=== PATIENT | female | born 1985 | race Hispanic/Latino ===

== ENCOUNTER 2024-08-02 11:34 | Emergency (ER) | payer OTHER, SELFPAY ==
[2024-08-02 11:44] VITALS: BP 111/70
--- NOTE | 2024-08-02 12:27 | EDRN ---
Pt administered a vomit bag at this time. Dr. Hector in room w/ pt.
--- NOTE | 2024-08-02 12:42 | ED.GENMED ---
History of Present Illness
General
Chief Complaint: Prescription Refill
Time Seen by Provider: 08/02/24 12:13
History of Present Illness
History of Present Illness:
39-year-old female history of anxiety, bipolar disorder, schizophrenia, substance abuse presenting for prescription refill. Patient states that she had inpatient psychiatric admission for 2 months and then was discharged, was in penitentiary for 2 weeks
and was released on 07/30. Patient states that she has been out of her medications and never received a prescription for refill after being discharge from hospital. Pt states she received medications while in penitentiary. Patient denies any
suicidal or homicidal ideations. Patient states that she is having auditory hallucinations which is normal for her. Patient contributes worsening hallucinations to not being on medications for the past few days. Patient states that she is
currently at [facility] and is attempting to switch care to [facility]. Patient denies chest pain, shortness of breath, abdominal pain. Patient states she is on gabapentin 800mg 3 times daily, Seroquel 400mg in the morning/800 mg at night, BuSpar
30 mg 3 times daily.
Phy Exam
Physical Exam
Physical Exam:
General: Alert, no acute distress
Head: NCAT
Eyes: clear conjunctiva, PERRLA
Neck: supple
Cardiac: regular rate and rhythm, no murmur
Lungs: clear to auscultation bilaterally. No wheezes, rales, or rhonchi. Speaking full unlabored sentences. No respiratory distress.
Abdomen: soft, nondistended nontender. No rebound or guarding.
MSK: no lower extremity edema bilaterally. No deformity
Skin: warm, dry
Neuro: Alert and oriented x3. no focal deficits
Course
Vital Signs
Initial and Last Documented VS:
Initial Vital Signs
Temp Pulse Resp BP Pulse Ox
97.8 F 99 16 111/70 99
08/02/24 11:44 08/02/24 11:44 08/02/24 11:44 08/02/24 11:44 08/02/24 11:44
Last Documented Vital Signs
Temp Pulse Resp BP Pulse Ox
97.8 F 77 18 99/72 96
08/02/24 11:44 08/02/24 13:12 08/02/24 13:12 08/02/24 13:12 08/02/24 13:12
MDM/Problems Addressed
MDM/Problems Addressed:
39-year-old female history of anxiety, bipolar, schizophrenia, substance abuse presenting for prescription refill. Patient states that she has not been on medications for the past few days due to not being prescribed medications after psychiatric
admission. Patient states that she is in the process of switching her care from [facility] to [facility]. Patient denies any suicidal or homicidal ideation. Offered patient to be evaluated by crisis, patient declines. Will give prescription for
gabapentin, Seroquel, BuSpar, discharge with psychiatry follow up
*Critical Care Note
Total Time (30-74mins, 75-104mins- exclusive of procedures): Not Applicable
ED Attending Note
-
Portions of this chart may have been created with voice recognition software.� Occasional wrong word or��sound alike� substitutions may have occurred due to the inherent limitations of voice recognition software.
Discharge Plan
Departure
Patient Disposition: Home (Routine Discharge)
Date of Disposition: 08/02/24
Time of Disposition: 12:47
Patient with high blood pressure during this ER visit?: No
Discharge Problem:
Encounter for medication refill
Prescriptions:
New
gabapentin 800 mg tablet
800 mg PO TID Qty: 30 0RF
quetiapine [Seroquel] 400 mg tablet
400 mg PO BID Qty: 30 0RF
Rx Instructions:
Take 400mg in morning (1 pill), 800mg at night (2 pills)
buspirone 30 mg tablet
30 mg PO TID Qty: 30 0RF
Referrals:
William Perez, [Family Provider] -
Activity Restrictions/Additional Instructions:
Call to make appointment
Take medications as prescribed
Return to the emergency department for suicidal/homicidal ideation, worsening hallucinations or new/worsening symptoms
Interventions
Interventions:
*Risk Screen - Suicide Last Done: 08/02/24 13:13
*General Assessment Last Done: 08/02/24 13:13
*Neglect/Abuse Screening Last Done: 08/02/24 13:13
ED- Fall Risk Assessment Last Done: 08/02/24 13:15
*ED COVID-19 Vaccine History Last Done: 08/02/24 13:13
*Nursing Disposition Last Done: 08/02/24 13:18
Discharge Date and Time
Discharge Date/Time: 08/02/24 13:19
Print Language: KHMER
[2024-08-02 13:12] VITALS: BP 99/72
[2024-08-02 13:15] VITALS: BMI 23.7
== END 2024-08-02 13:19 | disposition home or self-care (01) ==
LOC: EMR 11:34
PROVIDERS: EMERGENCY PHYSICIAN Emergency Medicine; FAMILY PHYSICIAN Internal Medicine
DX: Z76.0 Encounter for issue of repeat prescription (principal); F41.9 Anxiety disorder, unspecified; F31.9 Bipolar disorder, unspecified; F20.9 Schizophrenia, unspecified
CPT/HCPCS: 99281

== ENCOUNTER 2024-08-24 18:43 | Emergency (ER) | payer OTHER, SELFPAY ==
[2024-08-24 18:53] VITALS: BP 112/80
[2024-08-24 19:10] LABS: % Basophils 0.5 % (0-2); % Eosinophils 1.9 % (0-6); % Monocytes 12.2 % (1.7-9.3); % Neutrophils 48.4 % (42.2-75.2); Absolute Eosinophils 0.1 10^3/uL (0-0.7); Absolute Lymphocytes 1.5 10^3/uL (1.2-3.4); Absolute Monocytes 0.5 10^3/uL (0.1-0.6); Hemoglobin 12.3 g/dL (12.0-16.0); Mean Corp Hgb Conc. 34.2 g/dL (33.0-37.0); Mean Corpuscular Hgb 31.4 pg (27.0-31.0); Mean Corpuscular Volume 91.8 fL (81.0-99.0); Mean Platelet Volume 8.6 fL (7.4-10.4); Nucleated Red Blood Cells % 0 %; Platelet Count 203 10^3/uL (130-400); Red Blood Cell Count 3.92 10^6/uL (4.20-5.40); Red Cell Dist. Width 12.3 % (11.5-14.5); White Blood Cell Count 4.1 10^3/uL (4.8-10.8)
[2024-08-24 19:27] LABS: HCG, Serum Qualitative Screen Negative
[2024-08-24 19:28] LABS: Blood Urea Nitrogen 19 mg/dl (7-17); Calcium 9.7 mg/dl (8.4-10.2); Carbon Dioxide 25 mmol/L (22-30); Chloride 103 mmol/L (98-107); Glucose 89 mg/dl (70-99); Potassium 4.4 mmol/L (3.5-5.1); Sodium 139 mmol/L (135-145); eGFR > 60.00
[2024-08-24 19:29] LABS: Alcohol None Detected
--- NOTE | 2024-08-25 02:45 | ED.GENMED ---
History of Present Illness
General
Chief Complaint: Crisis Evaluation
Source: patient
Exam Limitations: none
Time Seen by Provider: 08/24/24 19:06
Nursing documentation reviewed up to this point in time: agreed with
History of Present Illness
History of Present Illness:
39-year-old female presents to the emergency room requesting medication refill. Patient says that she was recently incarcerated and released in early July. She left present without any long-term prescriptions for her psychiatric medications.
She was here in the emergency room 08/02/2024 and had medications refilled temporarily for 10-day course but unfortunately she has run out of these prescriptions and has not been able to take her medications for the past few days. She says that she
has not been able to see an outpatient psychiatrist yet to refill her medications. She says that she had been with [facility], has been seen by [facility] in the past and is working on establishing care through them. She does note that she has
been more anxious since she has stopped her medication. She says she feels mildly depressed. She says she is not suicidal but she is concerned that if she does not start taking her medicines she may get to that point. She denies any homicidal
ideation. She does report occasional hallucinations which is not atypical for her. She reports the following medication list:
Seroquel 400 mg in the morning, 800 mg in the evening
Cymbalta 60 mg daily
BuSpar 30 mg 3 times daily
Gabapentin 800 mg 3 times daily
Prazosin 2 mg nightly
I called patient's pharmacy ([facility]) to confirm.
Review of Systems
Review of Systems
All Other Systems: ROS reviewed and negative except as documented in HPI and ROS
Constitutional: Denies fever
Respiratory: Denies trouble breathing
Cardiac: Denies chest pain
ABD/GI: Denies abdominal pain, nausea or vomiting
: Denies flank pain
Neurological: Denies dizzy or headache
Psychiatric: Reports depression, anxiety and hallucinations; Denies suicidal
Phy Exam
Physical Exam
Physical Exam:
General: Awake, alert, oriented x3; no acute distress
Head: Normocephalic, atraumatic
Eyes: Conjunctiva normal, EOMI
Throat: Airway intact, handling secretions
Neck: Trachea midline, supple without meningismus
Lungs: Clear to auscultation bilaterally, no wheezing, rales, rhonchi
Heart: Regular rate and rhythm, no murmurs, gallops, or rubs
Abd: Soft, non distended, nontender
Neuro: Cranial nerves grossly intact, speech fluid
Skin: no rash
Extremities: No edema in extremities, equal pulses in all extremities
Psych: Broad affect, anxious mood, reasonable insight and judgment
Scores
Heart Failure Risk
Heart Failure Risk Score: Not Applicable
Heart Score for Chest Pain Patients
STEMI patient?: Not applicable
Withdrawal Assessment of Alcohol
Withdrawal Assessment Completed?: Not applicable
Course
Orders/Labs/Results
Orders:
Orders
08/24/24 18:56
Crisis Consult Urgent
Reason for Consult: RAN OUT OF MEDICATIONS/DEPRESSED
Comment: CONCERNED SHE WILL GET SUICIDAL IF GOES TOO LONG W/O MEDS
08/24/24 18:57
Test Result ONCE
08/24/24 19:02
Alcohol Urgent
Basic Metabolic Panel Urgent
Complete Blood Count/With Diff Urgent
HCG, Serum Qualitative Screen Urgent
Comment: Notify provider if positive test present
Abnormal Lab Results
08/24/24
19:02
WBC 4.1 L 10^3/uL
(4.8-10.8)
RBC 3.92 L 10^6/uL
(4.20-5.40)
Hct 36.0 L %
(37.0-47.0)
MCH 31.4 H pg
(27.0-31.0)
Monocytes % 12.2 H %
(1.7-9.3)
BUN 19 H mg/dl
(7-17)
08/24/24 19:02
08/24/24 19:02
Vital Signs
Initial and Last Documented VS:
Initial Vital Signs
Temp Pulse Resp BP Pulse Ox
36.6 C 84 20 112/80 98
08/24/24 18:53 08/24/24 18:53 08/24/24 18:53 08/24/24 18:53 08/24/24 18:53
Last Documented Vital Signs
Temp Pulse Resp BP Pulse Ox
36.6 C 84 20 112/80 98
08/24/24 18:53 08/24/24 18:53 08/24/24 18:53 08/24/24 18:53 08/24/24 18:53
MDM/Problems Addressed
Differential Diagnosis Includes:
Medication refill
MDM/Problems Addressed:
39-year-old female presents to the ER requesting medication refill as described above. She is currently in transition point for outpatient psychiatric care. She was seen by our crisis team here and they we will arrange for more intense outpatient
follow-up and help her establish care for long-term psychiatric medication refills. I will prescribe her 1 month supply out of the ER today while this is in progress. She is not acutely suicidal, no indication for inpatient psychiatric treatment
at this point in time.
*Pulse Oximetry
Patient hypoxic: no
*Critical Care Note
Total Time (30-74mins, 75-104mins- exclusive of procedures): Not Applicable
Data Reviewed
Source: patient and records
Patient Management
Discussion with other providers: Other (Discussed with crisis staff)
ED Attending Note
-
Portions of this chart may have been created with voice recognition software.� Occasional wrong word or��sound alike� substitutions may have occurred due to the inherent limitations of voice recognition software.
Discharge Plan
Departure
Patient Disposition: Home (Routine Discharge)
Date of Disposition: 08/24/24
Time of Disposition: 21:03
Patient with high blood pressure during this ER visit?: No
Discharge Problem:
Anxiety, Medication refill, Depression
Instructions: Depression, Adult (DC), Anxiety, Adult (DC)
Prescriptions:
New
quetiapine [Seroquel] 400 mg tablet
400 mg PO BID Qty: 90 0RF
Rx Instructions:
Take 400mg (1 tab) in AM, take 800mg (2 tabs) at night
duloxetine [Cymbalta] 60 mg capsule,delayed release(DR/EC)
60 mg PO DAILY Qty: 30 0RF
buspirone 30 mg tablet
30 mg PO TID Qty: 90 0RF
gabapentin 800 mg tablet
800 mg PO TID Qty: 90 0RF
prazosin 2 mg capsule
2 mg PO HS Qty: 30 0RF
No Action
gabapentin 800 mg tablet
800 mg PO TID Qty: 30 0RF
quetiapine [Seroquel] 400 mg tablet
400 mg PO BID Qty: 30 0RF
Rx Instructions:
Take 400mg in morning (1 pill), 800mg at night (2 pills)
buspirone 30 mg tablet
30 mg PO TID Qty: 30 0RF
Referrals:
NONE,* [Family Provider] -
Activity Restrictions/Additional Instructions:
Thank you for visiting the Emergency Department at [facility].
1. Please schedule a follow up appointment as directed. Call first thing tomorrow morning to make an appointment.
2. If indicated, please take your medications as instructed and indicated on discharge paperwork.
3. If any of your symptoms do not improve, or persist, or become more severe within 6-12 hours, please return to the emergency department for further care.
4. Please return to the emergency department if you develop a headache, neck pain/stiffness, fever greater than 100.4F, chest pain, shortness of breath, persistent nausea, vomiting, slurred speech, difficulty walking, numbness/tingling, weakness,
signs of infection or any other symptoms that are worrisome to you.
Please call [phone] if you have any questions.
Interventions
Interventions:
*Risk Screen - Suicide Last Done: 08/24/24 18:53
*Neglect/Abuse Screening Last Done: 08/24/24 18:53
*Nursing Disposition Last Done: 08/24/24 21:16
ED-Psychological Assessment Last Done: 08/24/24 19:22
Discharge Date and Time
Discharge Date/Time: 08/24/24 21:17
Print Language: AUSTRALIAN
== END 2024-08-24 21:17 | disposition home or self-care (01) ==
LOC: EMR 18:43
PROVIDERS: EMERGENCY PHYSICIAN Emergency Medicine
DX: F41.9 Anxiety disorder, unspecified (principal); F32.A Depression, unspecified; Z76.0 Encounter for issue of repeat prescription
CPT/HCPCS: 99283; 80048; 82077; 84703; 85025

== ENCOUNTER 2025-10-06 04:16 | Emergency (ER) | payer OTHER, SELFPAY ==
[2025-10-06 04:17] VITALS: BP 133/92
[2025-10-06 04:24] VITALS: BMI 26.9
[2025-10-06] MEDS: ADACEL 0.5 ML IM (05:00)
[2025-10-06] MEDS: TYLENOL 1000 MG PO (05:22)
--- NOTE | 2025-10-06 05:30 | ED.GENMED ---
History of Present Illness
General
Chief Complaint: Fall
Source: patient
Nursing documentation reviewed up to this point in time: agreed with
History of Present Illness
History of Present Illness:
Note:
CHIEF COMPLAINT(S)
Laceration above the left eye.
HISTORY OF PRESENT ILLNESS
The patient is a 40-year-old female who presented with a skin tear located above the left eye. The laceration does not appear to have much underlying tissue to suture, and the plan is to use tissue adhesive (glue) for repair. The patient has been
advised on wound care, including keeping a protective dressing over the area, and to remove it for further procedures. No additional symptoms such as neck pain or other areas of discomfort were noted during the visit.
PHYSICAL EXAM
General: Alert, no acute distress.
Skin: Laceration present above the left eye, requires tissue adhesive for closure.
Head: Normocephalic, atraumatic apart from noted laceration.
Neck: Supple, trachea midline.
Eye, Ears, Nose, Mouth, and Throat: Visual assessment to be conducted post-procedure. Oral mucosa moist.
Cardiovascular: Normal peripheral perfusion, no edema.
Respiratory: Respirations are non-labored.
Gastrointestinal: Abdomen nondistended.
Back: Normal range of motion, normal alignment.
Musculoskeletal: Normal range of motion, normal strength.
Neurological: Alert and oriented to person, place, time, and situation. No focal neurological deficit observed.
Psychiatric: Cooperative, appropriate mood and affect.
PLAN
1. Apply tissue adhesive to the laceration above the left eye.
2. Instruct the patient to keep a protective dressing over the area, removing it only for certain procedures such as visual assessment or imaging.
3. Perform a visual assessment following the closure of the wound and expected imaging.
DIFFERENTIAL DIAGNOSIS
The Differential Diagnosis includes, in no particular order and is not limited to:
1. Skin laceration due to trauma
2. Facial contusion
3. Eyebrow contusion
4. Orbital fracture (to be ruled out by imaging)
5. Subconjunctival hemorrhage
6. Periorbital edema
7. Frontal sinus fracture
8. Concussion requiring further assessment
9. Soft tissue injury
10. Foreign body in wound
Disposition:
SUMMARY OF ENCOUNTER
The patient, a 20-year-old female incarcerated individual, presented with a laceration above her left eye, sustained from a fall in her bunk. An evaluation in the emergency department was conducted, including imaging via CT scan, to ensure there
were no underlying fractures or additional complications. The scan returned negative, confirming no fractures, though some ecchymosis was noted around the left orbit. Due to the nature of the laceration and the absence of a deeper injury, the plan
was to repair the laceration using tissue adhesive. The patient was advised on wound care, specifically keeping a protective dressing over the site unless otherwise instructed for medical procedures.
DISPOSITION
Discharge back to [facility].
ASSESSMENT
Laceration above the left eye due to trauma from a fall, with associated periorbital ecchymosis.
PLAN
Apply tissue adhesive to the laceration. Educate the patient on the importance of maintaining the protective dressing except when required for medical assessments. Instruct the [facility] facility on monitoring for any signs of infection or
complications around the injury site.
INDEPENDENT REVIEW OF LABS AND INTERPRETATION OF TESTS
My independent interpretation of the CT scan indicates no fractures or internal injuries, with the only finding being ecchymosis around the left orbit.
PATIENT EDUCATION AND COUNSELING
The patient was informed about the nature of the injury, the procedure for closure with tissue adhesive, and the regimen for wound care. Instructions on signs of infection or worsening condition to watch for were provided to the [facility] medical staff.
MEDICATION RECONCILIATION
No medications were administered or prescribed during this visit.
MEDICAL DECISION MAKING
-Complexity of Data Reviewed: Chronic conditions affecting care were not specified. Differential Diagnosis includes skin laceration due to trauma, facial contusion, eyebrow contusion, orbital fracture (ruled out by imaging), subconjunctival
hemorrhage, periorbital edema, frontal sinus fracture, concussion requiring further assessment, soft tissue injury, foreign body in wound.
-Data:
Category 1
My independent interpretation of the CT scan shows no fractures.
-Risk: Consideration of Admission/Observation: Escalation of care including admission/observation was considered but ultimately it was determined that the patient is safe for outpatient management with close follow-up, as the work-up was reassuring,
does not reveal any acute life/organ threatening processes, patients symptoms were well controlled upon reevaluation, reexamination was reassuring, vitals were stable, patient agreeable with discharge, reliable for follow-up.
DIAGNOSIS
1. S01.81XA - Laceration of other part of head, initial encounter
Review of Systems
Review of Systems
Allergies reviewed?: Yes
All Other Systems: ROS reviewed and negative except as documented in HPI and ROS
Phy Exam
Physical Exam
Physical Exam:
..
Course
Orders/Labs/Results
Orders:
Orders
10/06/25 04:21
CT Head W/o Iv Contrast Urgent
Comment:
Reason For Exam: fall;headstrike
Cervical Spine wo Contrast CT [CT Cervical Spine W/o Iv Contr] Urgent
Comment:
Reason For Exam: fall;headstrike
10/06/25 04:35
Tetanus/Diphth/Acelpertussis [Adacel] 0.5 ml IM .ONCE ONE
10/06/25 05:21
Acetaminophen [Tylenol] 1,000 mg .ROUTE .STK-MED ONE
10/06/25 05:22
Acetaminophen [Tylenol] 1,000 mg PO NOW STA
Vital Signs
Initial and Last Documented VS:
Initial Vital Signs
Temp Pulse Resp BP Pulse Ox
98.1 F 91 16 133/92 97
10/06/25 04:17 10/06/25 04:17 10/06/25 04:17 10/06/25 04:17 10/06/25 04:17
Last Documented Vital Signs
Temp Pulse Resp BP Pulse Ox
98.1 F 91 16 133/92 97
10/06/25 04:17 10/06/25 04:17 10/06/25 04:17 10/06/25 04:17 10/06/25 05:34
*Radiology
Radiology exam reviewed: radiology read reviewed
*Pulse Oximetry
SaO2: 97
Oxygen Mode of Delivery: Room air
Patient hypoxic: no
*Critical Care Note
Total Time (30-74mins, 75-104mins- exclusive of procedures): Not Applicable
Update Note
Update Note:
NAME: ALEXANDER HEATH
DATE OF EXAM: 10/06/2025
Patient No: [id number]
Physician: MALACHI
Date of : 1985
Past Medical History (entered by Technologist):
Reason For Exam (entered by Technologist):
Other Notes (entered by Technologist): Pt arrives from [facility] d/t falling from the top bunk. Pt denies LOC and thinners.
Additional Information (per Vision Radiologist):
CT head and C-spine without IV contrast
IMPRESSION:
CT HEAD: Left frontal scalp contusion without underlying calvarial fracture or acute intracranial abnormality.
CT CERVICAL SPINE: No acute osseous trauma. Straightening of normal cervical lordosis without spondylolisthesis. Craniocervical junction intact. Vertebral body heights and disc spaces are intact.
Case finalized on 10/06/25 05:07 EDT
Piyush Simmons M.D.
This report has been electronically signed and verified by the Radiologist whose name is printed above.
ED Attending Note
-
Portions of this chart may have been created with voice recognition software.� Occasional wrong word or��sound alike� substitutions may have occurred due to the inherent limitations of voice recognition software.
Discharge Plan
Departure
Patient Disposition: Intermediate
Date of Disposition: 10/06/25
Time of Disposition: 05:49
Patient with high blood pressure during this ER visit?: Yes
Condition: Good
Discharge Problem:
Head injury, Fall, Laceration of scalp
Instructions: Laceration Repair With Glue (DC), Wound Care (DC), Head Injury in Adults (DC), Contusion (DC)
Prescriptions:
No Action
gabapentin 800 mg tablet
800 mg PO TID Qty: 30 0RF
quetiapine [Seroquel] 400 mg tablet
400 mg PO BID Qty: 30 0RF
Rx Instructions:
Take 400mg in morning (1 pill), 800mg at night (2 pills)
buspirone 30 mg tablet
30 mg PO TID Qty: 30 0RF
quetiapine [Seroquel] 400 mg tablet
400 mg PO BID Qty: 90 0RF
Rx Instructions:
Take 400mg (1 tab) in AM, take 800mg (2 tabs) at night
duloxetine [Cymbalta] 60 mg capsule,delayed release(DR/EC)
60 mg PO DAILY Qty: 30 0RF
buspirone 30 mg tablet
30 mg PO TID Qty: 90 0RF
gabapentin 800 mg tablet
800 mg PO TID Qty: 90 0RF
prazosin 2 mg capsule
2 mg PO HS Qty: 30 0RF
Referrals:
UNKNOWN,NO INTERVIEW [Family Provider]
Interventions
Interventions:
*Risk Screen - Suicide Last Done: 10/06/25 04:22
*General Assessment Last Done: 10/06/25 04:22
*Neglect/Abuse Screening Last Done: 10/06/25 04:22
*ED- Fall Risk Assessment Last Done: 10/06/25 04:22
*ED COVID-19 Vaccine History Last Done: 10/06/25 04:22
*ED Influenza Vaccine History Last Done: 10/06/25 04:22
ED-Musculoskeletal Assessment Last Done: 10/06/25 04:41
ED- Neurological Assessment Last Done: 10/06/25 04:41
ED-Skin Assessment Last Done: 10/06/25 04:41
Discharge Date and Time
Print Language: [email or web address]
== END 2025-10-06 06:00 ==
LOC: EMR 04:16
PROVIDERS: EMERGENCY PHYSICIAN Student in an Organized Health Care Education/Training Program
DX: S09.90XA Unspecified injury of head, initial encounter (principal); S01.01XA Laceration without foreign body of scalp, initial encounter; W06.XXXA Fall from bed, initial encounter; Y92.143 Cell of prison as the place of occurrence of the external cause; R03.0 Elevated blood-pressure reading, without diagnosis of hypertension; Z23 Encounter for immunization
CPT/HCPCS: 99284; 12001; 90471; 70450; 72125; 90715